=== PATIENT | male | born 1990 | race Caucasian/White ===

== ENCOUNTER 2018-09-28 06:28 | Emergency (ER) | payer OTHER ==
[2018-09-28] MEDS ORDERED: NORMAL SALINE 1000 ML 1,000 ML IV ONE (07:25)
[2018-09-28] MEDS ORDERED: ONDANSETRON HCL INJ/PF 4 MG/2 ML SDV IV ONE (07:25)
[2018-09-28 07:37] LABS: ABSOLUTE EOSINOPHILS # (AUTO) 0.3 10^3/uL (0.0-0.6); ABSOLUTE LYMPHOCYTES (AUTO) 1.3 10^3/uL (0.5-4.7); ABSOLUTE MONOCYTES (AUTO) 0.5 10^3/uL (0.1-1.4); ABSOLUTE NEUT (AUTO) 3.6 10^3/uL (1.7-8.2); BASOPHILS % (AUTO) 0.5 % (0-2); EOSINOPHILS % (AUTO) 5.4 % (0-6); HEMATOCRIT 44.5 % (37.9-51.0); HEMOGLOBIN 15.5 g/dL (13.5-17.0); LYMPHOCYTES % (AUTO) 23.1 % (13-45); MEAN CORPUSCULAR HEMOGLOBIN 30.1 pg (27.0-33.4); MEAN CORPUSCULAR HGB CONC 34.9 g/dL (32.0-36.0); MEAN CORPUSCULAR VOLUME 86 fl (80-97); PLATELET COUNT 215 10^3/uL (150-450); RED BLOOD COUNT 5.16 10^6/uL (4.35-5.55); TOTAL CELLS COUNTED % (AUTO) 100 %; WHITE BLOOD COUNT 5.7 10^3/uL (4.0-10.5)
--- NOTE | 2018-09-28 07:41 | ER Document Report ---
ED GI/ - General Chief Complaint: Abdominal Pain Stated Complaint: ABDOMINAL PAIN Time Seen by Provider: 09/28/18 07:12 Mode of Arrival: Ambulatory Information source: Patient Notes: Patient presents complaining of right lower abdominal pain for the past 3 days. Patient states he has had intermittent right testicular pain for the past 2 months that became persistent over the past 4 days. Patient reports nausea but denies any vomiting or diarrhea. Patient denies any fever. Patient does complain of occasional dysuria. Patient denies any penile discharge or concern about sexually transmitted infection. Patient does report decreased appetite. Patient was seen at the [facility] 4 days ago for this complaint and was told he had a UTI and placed on doxycycline. Patient has an appointment with urology in 2 days. TRAVEL OUTSIDE OF THE [place] IN LAST 30 DAYS: No - HPI Patient complains to provider of: Abdominal pain, Testicular pain Onset: Other - Abdominal pain times 3 days, testicular pain times 2 months Timing/Duration: Worse Quality of pain: Achy Pain Level: 3 Location: RLQ, Right testicle Sexual history: Active Associated symptoms: Dysuria, Loss of appetite, Nausea. denies: Fever, Urinary hesitancy, Urinary frequency, Urinary retention, Urinary urgency, Vomiting Exacerbated by: Other - [place] Relieved by: Denies Similar symptoms previously: No Recently seen / treated by doctor: Yes - Related Data Allergies/Adverse Reactions: No Known Allergies Allergy (Unverified 09/28/18 06:31) Past Medical History - General Information source: Patient - Social History Smoking Status: Never Smoker Frequency of alcohol use: None Drug Abuse: None Occupation: Active duty Lives with: Spouse/Significant other Family History: Reviewed & Not Pertinent Patient has suicidal ideation: No Patient has homicidal ideation: No - Medical History Medical History: Negative Renal/ Medical History: Denies: Hx Peritoneal Dialysis Past Surgical History: Reports: Hx Orthopedic Surgery, Hx Tonsillectomy, Other - Vasectomy Review of Systems - Review of Systems Constitutional: No symptoms reported. denies: Fever EENT: No symptoms reported Cardiovascular: No symptoms reported. denies: Chest pain Respiratory: No symptoms reported. denies: Cough Gastrointestinal: Abdominal pain, Nausea. denies: Diarrhea, Vomiting Genitourinary: Dysuria. denies: Discharge Male Genitourinary: Testicular pain, Other - Pain during intercourse. denies: Penile discharge Musculoskeletal: No symptoms reported. denies: Back pain Skin: No symptoms reported Hematologic/Lymphatic: No symptoms reported Neurological/Psychological: No symptoms reported Physical Exam - Vital signs Vitals: Temp Pulse Resp BP Pulse Ox 97.6 F 63 15 135/59 H 98 09/28/18 06:31 09/28/18 06:31 09/28/18 06:31 09/28/18 06:31 09/28/18 06:31 - General General appearance: Appears well, Alert In distress: None - HEENT Head: Normocephalic, Atraumatic Eyes: Normal Conjunctiva: Normal Nasal: Normal Mouth/Lips: Normal Mucous membranes: Normal Neck: Normal, Supple. No: Lymphadenopathy - Respiratory Respiratory status: No respiratory distress Chest status: Nontender Breath sounds: Normal. No: Rales, Rhonchi, Stridor, Wheezing Chest palpation: Normal - Cardiovascular Rhythm: Regular Heart sounds: S1 appreciated, S2 appreciated - Abdominal Inspection: Normal Distension: No distension Bowel sounds: Normal Tenderness: Tender - RLQ, r inguinal area Organomegaly: No organomegaly - Genitourinary Inspection: Normal Tenderness: Other - R testicle mildly tender with palpable nodular lesion just superior to right testicle Cremasteric reflex: Normal Scrotum: Normal - Back Back: Normal, Nontender. No: CVA tenderness - Extremities General upper extremity: Normal inspection, Nontender, Normal ROM General lower extremity: Normal inspection, Nontender, Normal ROM - Neurological Neuro grossly intact: Yes Cognition: Normal [place] Coma Scale Eye Opening: Spontaneous [place] Coma Scale Verbal: Oriented [place] Coma Scale Motor: Obeys Commands [place] Coma Scale Total: 15 - Psychological Associated symptoms: Normal affect, Normal mood - Skin Skin Temperature: Warm Skin Moisture: Dry Skin Color: Normal Course - Re-evaluation Re-evalutation: 09/28/18 09:26 Patient is currently taking doxycycline and has urology follow-up in 2 days. Discussed with patient concerned that he may need broader coverage with his antibiotic choice at this time. Discussed black box warning of fluoroquinolone class of drugs. Patient would prefer to stay on doxycycline and follow-up with urology this week as planned. Patient without any evidence of torsion or appendicitis at this time. Patient is comfortable with discharge plan of care at this time. Copies of his radiology reports were given to patient so that he can present these to his urologist at follow-up. - Vital Signs Vital signs: Temp Pulse Resp BP Pulse Ox 98.1 F 63 60 H 130/69 H 98 09/28/18 09:33 09/28/18 06:31 09/28/18 09:33 09/28/18 09:33 09/28/18 09:33 - Laboratory Result Diagrams: 09/28/18 07:05 09/28/18 07:05 Laboratory results interpreted by me: 09/28/18 07:05 Carbon Dioxide 31 H Labs- Entire Visit 09/28/18 09/28/18 09/28/18 07:05 07:05 07:25 WBC 5.7 RBC 5.16 Hgb 15.5 Hct 44.5 MCV 86 MCH 30.1 MCHC 34.9 RDW 13.0 Plt Count 215 Seg Neutrophils % 63.0 Lymphocytes % 23.1 Monocytes % 8.0 Eosinophils % 5.4 Basophils % 0.5 Absolute Neutrophils 3.6 Absolute Lymphocytes 1.3 Absolute Monocytes 0.5 Absolute Eosinophils 0.3 Absolute Basophils 0.0 Sodium 142.6 Potassium 4.7 Chloride 102 Carbon Dioxide 31 H Anion Gap 10 BUN 15 Creatinine 0.95 Est GFR ( Amer) > 60 Est GFR (Non-Af Amer) > 60 Glucose 89 Calcium 10.1 Total Bilirubin 0.9 Direct Bilirubin 0.3 Neonat Total Bilirubin Not Reportable Neonat Direct Bilirubin Not Reportable Neonat Indirect Bili Not Reportable AST 34 ALT 50 Alkaline Phosphatase 91 Total Protein 7.7 Albumin 4.9 Urine Color YELLOW Urine Appearance CLEAR Urine pH 7.0 Ur Specific [place] 1.009 Urine Protein NEGATIVE Urine Glucose (UA) NEGATIVE Urine Ketones NEGATIVE Urine Blood NEGATIVE Urine Nitrite NEGATIVE Urine Bilirubin NEGATIVE Urine Urobilinogen NEGATIVE Ur Leukocyte Esterase NEGATIVE Urine RBC (Auto) 0 Urine Mucus (Auto) RARE Urine Ascorbic Acid NEGATIVE - Diagnostic Test Radiology reviewed: Reports reviewed Discharge - Discharge Clinical Impression: Pelvic pain in male, Cyst, epididymis Condition: Stable Disposition: HOME, SELF-CARE Instructions: Abdominal Pain ([facility]), Observation for Appendicitis ([facility]) Additional Instructions: Return immediately for any new or worsening symptoms Followup with your primary care provider, call tomorrow to make a followup appointment Continue your antibiotic as previously prescribed Follow-up with the urologist as planned this week Prescriptions: Naproxen [Naprosyn 250 Nmg Tablet] 1 tab PO BID #14 tablet Oxycodone HCl/Acetaminophen [Percocet 5-325 mg Tablet] 1 tab PO ASDIR PRN #12 tablet PRN Reason: Referrals: [facility] [Provider Group] - Follow up as needed
[2018-09-28 07:46] LABS: ALANINE AMINOTRANSFERASE 50 U/L (21-72); ALBUMIN 4.9 g/dL (3.5-5.0); ALKALINE PHOSPHATASE 91 U/L (38-126); ANION GAP 10 (5-19); ASPARTATE AMINO TRANSFERASE 34 U/L (17-59); BILIRUBIN,DIRECT 0.3 mg/dL (0.0-0.4); BILIRUBIN,TOTAL 0.9 mg/dL (0.2-1.3); BLOOD UREA NITROGEN 15 mg/dL (7-20); CALCIUM 10.1 mg/dL (8.4-10.2); CARBON DIOXIDE 31 mmol/L (22-30); CHLORIDE 102 mmol/L (98-107); GLUCOSE 89 mg/dL (75-110); POTASSIUM 4.7 mmol/L (3.6-5.0); SODIUM 142.6 mmol/L (137-145); TOTAL PROTEIN 7.7 g/dL (6.3-8.2)
[2018-09-28 08:00] LABS: APPEARANCE,URINE CLEAR; BILIRUBIN,URINE NEGATIVE (NEGATIVE); COLOR,URINE YELLOW; GLUCOSE, URINE NEGATIVE (NEGATIVE); KETONES,URINE NEGATIVE (NEGATIVE); LEUKOCYTE ESTERASE,URINE NEGATIVE (NEGATIVE); NITRITE,URINE NEGATIVE (NEGATIVE); PROTEIN,URINE NEGATIVE (NEGATIVE); URINE SPECIFIC GRAVITY 1.009; UROBILINOGEN,URINE NEGATIVE mg/dL (<2.0)
--- NOTE | 2018-09-28 08:25 | RADIOLOGY REPORT (SQ) ---
EXAM DESCRIPTION: CT ABD/PELVIS WITH IV ONLY COMPLETED DATE/TIME: 09/28/2018 8:03 am REASON FOR STUDY: RLQ pain COMPARISON: None. TECHNIQUE: CT scan of the abdomen and pelvis performed using helical scanning technique with dynamic intravenous contrast injection. No oral contrast. Images reviewed with lung, soft tissue, and bone windows. Reconstructed coronal and sagittal MPR images reviewed. Delayed images for evaluation of the urinary system also acquired. All images stored on PACS. All CT scanners at this facility use dose modulation, iterative reconstruction, and/or weight based d osing when appropriate to reduce radiation dose to as low as reasonably achievable (ALARA). [facility]: Dose Right [facility]: CareDose [facility]: Dose Right [facility]: Teradose 4D [facility]: [id number] CONTRAST TYPE AND DOSE: 100 cc Omnipaque 350- low osmolar. RENAL FUNCTION: None required. The patient is less than 50 years old. RADIATION DOSE: CT Rad equipment meets quality standard of care and radiation dose reduction techniq ues were employed. CTDIvol: 9.2 - 12.5 mGy. DLP: 1258 mGy-cm.. LIMITATIONS: None. FINDINGS: LOWER CHEST: No significant findings. No nodules or infiltrates. LIVER: Normal size. No masses. No dilated ducts. SPLEEN: Normal size. No focal lesions. PANCREAS: No masses. No significant calcifications. No adjacent inflammation or peripancreatic fluid collections. Pancreatic duct not dilated. GALLBLADDER: No identified stones by CT criteria. No inflammatory changes to suggest cholecystitis. ADRENAL GLANDS: No significant masses or asymmetry. RIGHT KIDNEY AND URETER: No solid masses. No significant calcifications. No hydronephrosis or hyd roureter. LEFT KIDNEY AND URETER: No solid masses. No significant calcifications. No hydronephrosis or hydr oureter. AORTA AND VESSELS: No aneurysm. No dissection. Renal arteries, SMA, celiac without stenosis. RETROPERITONEUM: No retroperitoneal adenopathy, hemorrhage or masses. BOWEL AND PERITONEAL CAVITY: No masses or inflammatory changes. No free fluid or peritoneal masses. APPENDIX: Normal. PELVIS: No mass. No free fluid. Normal bladder. ABDOMINAL WALL: No masses. No hernias. BONES: No significant or acute findings. Bone islands in the bilateral proximal femurs. OTHER: No other significant finding. IMPRESSION: No evidence of acute intra-abdominal/pelvic process or findings to explain patient's sym ptoms. Normal appendix. TECHNICAL DOCUMENTATION: JOB ID: [id number] Quality ID # [id number]: Final reports with documentation of one or more dose reduction techniques (e.g., Au tomated exposure control, adjustment of the mA and/or kV according to patient size, use of iterative reconstruction technique) 2010 [employer]- All Rights Reserved Reading location - IP/workstation name: [email or web address]
--- NOTE | 2018-09-28 08:44 | RADIOLOGY REPORT (SQ) ---
EXAM DESCRIPTION: U/S SCROTUM W/DOPPLER COMPLETED DATE/TIME: 09/28/2018 8:27 am REASON FOR STUDY: testicular pain COMPARISON: None. TECHNIQUE: Static and realtime patel scale imaging of the scrotum and testes. Selected color Doppler and spectral images recorded to document blood flow. LIMITATIONS: None. FINDINGS: RIGHT: TESTICLE: The right testicle measures 4.5 x 3.0 x 2.2 cm Normal size. Normal echotexture. Normal bl ood flow. No mass. EPIDIDYMIS: The head of the epididymis measures 0.8 x 0.8 x 0.8 cm. Normal. HYDROCELE OR VARICOCELE: Hydrocele with internal debris. The debris is mobile. HERNIA OR EXTRA-TESTICULAR MASS: A 1.4 x 1.2 x 1.3 cm epididymal cyst. Varicocele is noted appear OTHER: No other significant finding. LEFT: TESTICLE: The left testicle measures 4.8 x 3.0 x 2.0 cm Normal size. Normal echotexture. Normal bl ood flow. No mass. EPIDIDYMIS: The head of the epididymis measures 1.0 x 1.0 x 0.9 cm. Normal. HYDROCELE OR VARICOCELE: Varicocele. HERNIA OR EXTRA-TESTICULAR MASS: No. OTHER: No other significant finding. IMPRESSION: 1. NO EVIDENCE OF TESTICULAR MASS OR TORSION. 2. Epididymal cyst on the right. 3. Complex appearing right hydrocele. 4. Bilateral varicoceles. TECHNICAL DOCUMENTATION: JOB ID: [id number] [employer]- All Rights Reserved Reading location - IP/workstation name: [email or web address]
[2018-09-28] MEDS ORDERED: CEFTRIAXONE INJ 250 MG VIAL IV ONE (09:08)
[2018-09-28 09:15] LABS: CHLAM PCR NOT DETECTED (NOT DETECT); GON PCR NOT DETECTED (NOT DETECT)
[2018-09-28 09:54] VITALS: BP 130/69
== END 2018-09-28 09:54 | disposition home or self-care (01) ==
LOC: ER 06:28
DX: N50.3 Cyst of epididymis (principal); N39.0 Urinary tract infection, site not specified; R10.2 Pelvic and perineal pain; R10.31 Right lower quadrant pain; N50.811 Right testicular pain; R63.0 Anorexia; R30.0 Dysuria; R11.0 Nausea
CPT/HCPCS: 99284; 96361; 96375; 96365; 36415; 85025; 80053; 81001; 87491; 87591; 76870; 93976; 74177; J2405; J7030; J0696